=== PATIENT | male | born 1985 | race Asian ===

== ENCOUNTER 2018-02-01 19:24 | Emergency (ER) | payer OTHER ==
[~2018-02-01] VITALS: Ht 170.2 cm; Wt 72.5 kg
[2018-02-01 20:35] LABS: APPEARANCE CLEAR ((CLEAR)); BILIRUBIN NEGATIVE; BLOOD NEGATIVE; COLOR STRAW ((YELLOW)); GLUCOSE (STRIP) NEGATIVE; KETONES NEGATIVE; LEUKOCYTES NEGATIVE; NITRITE NEGATIVE; PROTEIN (STRIP) NEGATIVE; SPECIFIC GRAVITY 1.009 (1.000-1.030); UCUL ADDED? NO; UROBILINOGEN 0.2 MG/DL (0.2-1.0)
[2018-02-01 20:40] LABS: BASOPHIL (%) 0.3 % (0-1); EOSINOPHIL (%) 0.4 % (0-5); HEMATOCRIT 43.5 % (38.0-50.0); HEMOGLOBIN 15.3 G/DL (12.5-16.6); IMMATURE GRANULOCYTE (%) 0.4 % (0.0-0.7); LYMPHOCYTE (%) 24.4 % (15-42); LYMPHOCYTE COUNT 2.3 K/uL (1.0-2.8); MCHC 35.2 G/DL (30.0-36.0); MCV 88.1 FL (86-99); MONOCYTE (%) 4.6 % (3-12); MONOCYTE COUNT 0.4 K/uL (0-0.8); NEUTROPHIL (%) 69.9 % (45-76); NEUTROPHIL COUNT 6.4 K/uL (1.8-6.4); PLATELET COUNT 201 K/uL (156-360); RBC DIS.WIDTH-SD 41.7 % (39-53); RED BLOOD COUNT 4.94 M/uL (4.00-5.50); WHITE BLOOD COUNT 9.2 K/uL (4.1-10.2)
[2018-02-01 20:44] LABS: AMPHETAMINE NEGATIVE (500 ng/mL); BARBITURATES NEGATIVE (200 ng/mL); BENZODIAZEPINES NEGATIVE (150 ng/mL); BUPRENORPHINE NEGATIVE (10 ng/mL); COCAINE NEGATIVE (150 ng/mL); METHADONE NEGATIVE (200 ng/mL); METHAMPHETAMINE NEGATIVE (500 ng/mL); OPIATES (MORPHINE) PRESUMPTIVE POSITIVE (100 ng/mL); OXYCODONE NEGATIVE (100 ng/mL); PHENCYCLIDINE NEGATIVE (25 ng/mL); PROPOXYPHENE NEGATIVE (300 ng/mL); THC CANNABINOIDS NEGATIVE (50 ng/mL); TRICYCLIC ANTIDEPRESSANTS NEGATIVE (300 ng/mL)
[2018-02-01 21:00] LABS: ALBUMIN 4.8 g/dL (3.2-4.8); CHLORIDE 107 mEq/L (99-109); POTASSIUM 3.7 mEq/L (3.7-5.4); SODIUM 143 mEq/L (136-147)
[2018-02-01 21:02] LABS: GLUCOSE 87 mg/dL (70-99); TOTAL PROTEIN 7.8 g/dL (6.4-8.3)
[2018-02-01 21:04] LABS: TOTAL BILIRUBIN 0.3 mg/dL (0.0-1.0)
[2018-02-01 21:05] LABS: SERUM ETHYL ALCOHOL 176 mg/dL
[2018-02-01 21:06] LABS: ALKALINE PHOSPHATASE 98 IU/L (3-129); CREATININE 0.8 mg/dL (0.6-1.3); GFR ESTIMATE (CALCULATED) > 59 mL/min/ (58.99-99999)
[2018-02-01 21:07] LABS: AST (GOT) 24 IU/L (2-34); UREA NITROGEN (BUN) 12 mg/dL (9-23)
[2018-02-01 21:09] LABS: ALT (GPT) 25 IU/L (3-49); LIPASE 3 U/L (1.0-51.0)
[2018-02-01 21:55] VITALS: BP 99/54
[2018-02-02] MEDS ORDERED: CLONIDINE HCL0.1 MG PO (14:34)
[2018-02-02] MEDS ORDERED: HYDROXYZINE HCL50 MG PO (14:36)
[2018-02-02] MEDS ORDERED: TYLENOL REGULA325 MG PO (14:37)
[2018-02-02] MEDS ORDERED: GABAPENTIN800 MG PO (14:38)
[2018-02-02] MEDS ORDERED: MULTIVITAMIN1 EAC2 PO (14:38)
[2018-02-02] MEDS ORDERED: DIPROSONE 0.05%15 GM TP (14:38)
[2018-02-02] MEDS ORDERED: ENBREL50 MG/1 ML SC (14:39)
[2018-02-02] MEDS ORDERED: MOMETASONE FURO45 G1 TP (14:40)
[2018-02-02] MEDS ORDERED: CREON 241 CAPSULE PO (14:40)
[2018-02-02] MEDS ORDERED: TRAZODONE HCL100 MG PO (14:40)
[2018-02-02] MEDS ORDERED: ZOFRAN ODT8 MG PO (14:41)
[2018-02-02] MEDS ORDERED: OXYCODONE HCL15 MG PO (14:41)
[2018-02-02] MEDS ORDERED: CLOBETASOL PRO118 ML TP (14:42)
[2018-02-02] MEDS ORDERED: ADVIL,NUPRIN,M200 MG PO (14:42)
[2018-02-02] MEDS ORDERED: ATIVAN0.5 MG PO (17:48)
== END 2018-02-01 21:58 | disposition home or self-care (01) ==
LOC: EME 19:24
PROVIDERS: Emergency Medicine
DX: R10.12 Left upper quadrant pain (principal); F10.129 Alcohol abuse with intoxication, unspecified; R11.2 Nausea with vomiting, unspecified; R78.1 Finding of opiate drug in blood; Y90.6 Blood alcohol level of 120-199 mg/100 ml
CPT/HCPCS: 80053; 81003; 83605; 83690; 84999; 85025; 99281; 99284; G0480

== ENCOUNTER 2018-02-01 23:58 | Observation (INO) | payer OTHER ==
[~2018-02-01] VITALS: Ht 170.2 cm; Wt 74.4 kg
[2018-02-02 01:19] LABS: LIPASE 3 U/L (1.0-51.0)
[2018-02-02 02:02] LABS: ALBUMIN 5.1 g/dL (3.2-4.8); CHLORIDE 107 mEq/L (99-109); POTASSIUM 4.3 mEq/L (3.7-5.4); SODIUM 143 mEq/L (136-147)
[2018-02-02 02:04] LABS: GLUCOSE 88 mg/dL (70-99); TOTAL PROTEIN 8.1 g/dL (6.4-8.3)
[2018-02-02 02:06] LABS: TOTAL BILIRUBIN 0.4 mg/dL (0.0-1.0)
[2018-02-02 02:08] LABS: ALKALINE PHOSPHATASE 103 IU/L (3-129); CREATININE 0.8 mg/dL (0.6-1.3); GFR ESTIMATE (CALCULATED) > 59 mL/min/ (58.99-99999)
[2018-02-02 02:09] LABS: AST (GOT) 26 IU/L (2-34); DIRECT BILIRUBIN 0.2 mg/dL (0.0-0.3); UREA NITROGEN (BUN) 12 mg/dL (9-23)
[2018-02-02 02:11] LABS: ALT (GPT) 26 IU/L (3-49)
[2018-02-02 02:31] LABS: BASOPHIL (%) 0.3 % (0-1); EOSINOPHIL (%) 1.1 % (0-5); EOSINOPHIL COUNT 0.1 K/uL (0-0.3); HEMATOCRIT 42.3 % (38.0-50.0); HEMOGLOBIN 14.7 G/DL (12.5-16.6); IMMATURE GRANULOCYTE (%) 0.4 % (0.0-0.7); LYMPHOCYTE (%) 20.6 % (15-42); LYMPHOCYTE COUNT 1.6 K/uL (1.0-2.8); MCH 30.9 PG (29.0-34.0); MCHC 34.8 G/DL (30.0-36.0); MCV 88.9 FL (86-99); MONOCYTE (%) 6.5 % (3-12); MONOCYTE COUNT 0.5 K/uL (0-0.8); NEUTROPHIL (%) 71.1 % (45-76); NEUTROPHIL COUNT 5.4 K/uL (1.8-6.4); PLATELET COUNT 193 K/uL (156-360); RBC DIS.WIDTH-CV 13.1 % (11.8-14.6); RBC DIS.WIDTH-SD 42.9 % (39-53); RED BLOOD COUNT 4.76 M/uL (4.00-5.50); WHITE BLOOD COUNT 7.5 K/uL (4.1-10.2)
[2018-02-02 04:04] VITALS: BP 166/116
[2018-02-02 08:10] VITALS: BP 146/88
[2018-02-02 11:26] VITALS: BP 150/77
[2018-02-02 12:04] LABS: APPEARANCE CLEAR ((CLEAR)); BILIRUBIN NEGATIVE; BLOOD NEGATIVE; COLOR STRAW ((YELLOW)); GLUCOSE (STRIP) NEGATIVE; KETONES 5; LEUKOCYTES NEGATIVE; NITRITE NEGATIVE; PROTEIN (STRIP) NEGATIVE; SPECIFIC GRAVITY 1.013 (1.000-1.030); UCUL ADDED? NO; UROBILINOGEN 0.2 MG/DL (0.2-1.0)
[2018-02-02] MEDS ORDERED: CLONIDINE HCL0.1 MG PO (14:34)
[2018-02-02] MEDS ORDERED: HYDROXYZINE HCL50 MG PO (14:36)
[2018-02-02] MEDS ORDERED: TYLENOL REGULA325 MG PO (14:37)
[2018-02-02] MEDS ORDERED: GABAPENTIN800 MG PO (14:38)
[2018-02-02] MEDS ORDERED: MULTIVITAMIN1 EAC2 PO (14:38)
[2018-02-02] MEDS ORDERED: DIPROSONE 0.05%15 GM TP (14:38)
[2018-02-02] MEDS ORDERED: ENBREL50 MG/1 ML SC (14:39)
[2018-02-02] MEDS ORDERED: MOMETASONE FURO45 G1 TP (14:40)
[2018-02-02] MEDS ORDERED: TRAZODONE HCL100 MG PO (14:40)
[2018-02-02] MEDS ORDERED: CREON 241 CAPSULE PO (14:40)
[2018-02-02] MEDS ORDERED: ZOFRAN ODT8 MG PO (14:41)
[2018-02-02] MEDS ORDERED: OXYCODONE HCL15 MG PO (14:41)
[2018-02-02] MEDS ORDERED: CLOBETASOL PRO118 ML TP (14:42)
[2018-02-02] MEDS ORDERED: ADVIL,NUPRIN,M200 MG PO (14:42)
[2018-02-02 15:46] VITALS: BP 129/77
[2018-02-02] MEDS ORDERED: ATIVAN0.5 MG PO (17:48)
== END 2018-02-02 18:10 | disposition home or self-care (01) ==
LOC: EME 23:58 → 4SOUTH 02-02 02:05 → EDOF 02-02 02:05 → ENRESERV 02-02 02:07 → 4SOUTH 02-02 03:56
PROVIDERS: Emergency Medicine; Nurse Practitioner Adult Health
DX: R10.84 Generalized abdominal pain (principal); F10.129 Alcohol abuse with intoxication, unspecified; E87.2 Acidosis; E86.0 Dehydration; F43.10 Post-traumatic stress disorder, unspecified; F32.9 Major depressive disorder, single episode, unspecified; Z86.19 Personal history of other infectious and parasitic diseases
CPT/HCPCS: 80048; 80053; 80076; 81003; 83605; 83690; 85025; 85027; 99281; 99285; G0378; J2405; J3411; J3475; J7030; S0028